=== PATIENT | female | born 1975 | race Caucasian/White ===

== ENCOUNTER 2019-03-26 00:54 | Day surgery (SDC) | payer OTHER, SELFPAY ==
[2019-03-13 10:37] VITALS: BMI 27.4
[2019-03-26] VITALS (14 sets, daily range): BP systolic 100–129; BP diastolic 66–84; PULSE 54–75; RESP 14–18; TEMP 36.2–37.4; O2SAT 97–100
[2019-03-26] MEDS: LACTATED RINGERS 1,000 ML 30 ML IV CONT ×2 (10:50→13:57)
--- NOTE | 2019-03-26 11:26 | WPDANESEPPF ---
Anes - Initial Pre Proc Eval Procedure: Operation Date: 03/26/19 12:00 Proposed Procedures p Total Laparoscopic Hysterectomy With Bilateral Salpingo-Oophorectomy - Caroline Vazquez MD Date/Time: 03/26/19 11:26 Surgeon: Caroline Vazuqez MD Pre Op Diagnosis: Pelvic Pain/ Bilateral Ovarian Cyst/Menometrorrhia Patient Data Age: 43 Gender: F Height: 5 ft 4 in Weight: 75.8 kg Allergies Allergy/AdvReac Type Severity Reaction Status Date / Time Sulfa (Sulfonamide Allergy Unknown RASH Verified 03/26/19 10:53 Antibiotics) Home Medications Medication Instructions Recorded Confirmed Type tamoxifen 20 mg PO DAILY 03/13/19 03/26/19 History Patient hx anesthesia problems: none and post op nausea/vomiting Family hx anesthesia problems: none PMFSH Past Medical History Medical History Anemia Surgical History Surgical History (Updated 03/26/19 @ 11:26 by Ck Garcia MD) H/O subtotal mastectomy of right breast Anes - Eval Final PreProcedure Day of Procedure 03/26/19 11:26 Patient weight: normal Heart: regular rate and rhythm Lungs: clear to auscultation Airway: Mallampati scale class II Neurological: alert and oriented Last oral intake: >/= 8 hours ASA classification: III Emergent: no Anesthetic plan: proceed Anesthesia type and monitoring: general ETT and standard monitoring Informed Consent: The patient's anesthetic plan and its attendant risks and benefits were discussed with the patient/family/POA. Questions were solicited and answers provided to the satisfaction of the patient/family/POA.
[2019-03-26] MEDS: SCOPOLAMINE 1.5 MG PATCH TRANSDERM (11:39)
[2019-03-26] MEDS: ONDANSETRON INJ 4 MG/2 ML VIAL IV PUSH (11:39)
--- NOTE | 2019-03-26 12:01 | WPDHPUPDATE1 ---
History and Physical Update Update Date/Time: 03/26/19 12:01 History and Physical has been reviewed, including an updated exam of the patient. There are NO changes in the patient's condition. Risks, benefits, and alternatives have been discussed and questions answered. Patient agrees to proceed with procedure.
--- NOTE | 2019-03-26 12:14 | PM.OP ---
Procedure Note - Brief Procedure Note - Brief Date of procedure: 03/26/19 Pre-op diagnosis: Pelvic Pain/ Bilateral Ovarian Cyst/Menometrorrhia Post-op diagnosis: same Procedure performed: TLH/BSO Anesthesia: GETA Surgeon: Caroline Vazquez MD Estimated blood loss (mL): 25 Drains: Yes (Jenkins) Pathology: yes Complications: No immediate complications Condition: stable Disposition: PACU Findings: Normal uterus, fallopian tubes, right ovary; left ovarian cyst
[2019-03-26] MEDS: ceFAZolin 2 GM/D5W 50 ML 2 GM/50 ML BAG IVPB (12:21)
[2019-03-26] MEDS: BUPIVACAINE/EPINEPHRINE 0.5% 30 ML VIAL INFILTRATE (12:58)
[2019-03-26] MEDS: DEXTROSE 5%/LACTATED RINGERS 1,000 ML 125 ML IV CONT (15:45)
[2019-03-26] MEDS: IBUPROFEN 600 MG TABLET PO ×2 (15:48→22:18)
--- NOTE | 2019-03-26 17:13 | OP_ITS ---
DATE OF PROCEDURE: 03/26/2019 PREOPERATIVE DIAGNOSES: Menometrorrhagia, left ovarian cyst. POSTOPERATIVE DIAGNOSES: Menometrorrhagia, left ovarian cyst. PROCEDURE PERFORMED: Total laparoscopic hysterectomy, bilateral salpingo-oophorectomy. ANESTHESIA: General endotracheal tube. ESTIMATED BLOOD LOSS: 25 mL. COMPLICATIONS: None. FINDINGS: Normal uterus, fallopian tubes, right ovary, appendix, liver and gallbladder, small nodular-appearing left ovarian cyst. INDICATIONS: A 43-year-old who had breast cancer and is on tamoxifen, had been recommended by her oncologist to consider removing her ovaries to decrease estrogen levels and she also has a persistent left ovarian cyst and irregular menstrual bleeding, so she opted for total laparoscopic hysterectomy and bilateral salpingo-oophorectomy after the risks, benefits, complications, and alternatives were discussed. DESCRIPTION OF PROCEDURE: For the procedure, she was taken to the operating room where general anesthesia was obtained. She was prepared and draped in the normal sterile fashion in the dorsal lithotomy position. Marcaine was injected infraumbilically and a 5 mm skin incision was made in the infraumbilical fold with a scalpel. A 5 mm non-bladed trocar was then placed with the camera in the trocar under direct visualization into the peritoneal cavity. Insufflation was begun and she was placed in Trendelenburg. A 5 mm trocar was placed in the left lower quadrant under direct visualization and a 10 mm trocar in the right lower quadrant. Inspection of the pelvis revealed the findings as noted above. There were a few adhesions of the colon to the left pelvic sidewall which were taken down easily with a harmonic Scalpel. At this point, the right infundibulopelvic ligament was grasped, coagulated, and transected with the Harmonic Scalpel. The mesosalpinx serially clamped and transected and then the round ligament was clamped and transected. The bladder flap was then created from the right side. The left infundibulopelvic ligament was then grasped, coagulated, and transected. The mesosalpinx was serially transected and then the round ligament on the left side and the bladder flap was created from the left creating the flap from the right. The bladder was pushed down further with a laparoscopic Kittner. The left uterine artery was then skeletonized. The right uterine artery was skeletonized, clamped, coagulated, and transected with excellent hemostasis visualized. Several more bites were taken down the broad ligament including the uterosacral ligament. The left uterine artery was then clamped, coagulated, and transected with excellent hemostasis visualized. Several more bites were taken down the broad ligament until the level of the uterosacral ligament had been reached and the uterosacral ligament was also divided. A sponge stick was placed in the vagina and pressed against the anterior cul-de-sac. An incision was made against the sponge stick with the Harmonic Scalpel, making a colpotomy incision on the anterior side of the cervix. Then the vagina was circumferentially incised hugging the cervix until the cervix and uterus were completely free from the surrounding vaginal tissue. The cervix was pressed down as much as possible into the vaginal canal. Attention was then turned to the vagina where a speculum was placed. The cervix was grasped with a tenaculum and the uterus was brought easily through the vagina. A moist blue towel was then placed in the vagina to dietitian helper in holding in pneumoperitoneum. Attention was then turned back to the abdomen. The pelvis was irrigated. All operative sites were found to be hemostatic. The vaginal cuff was then reapproximated using 0 Vicryl interrupted sutures. A total of 3 sutures were placed laparoscopic
[2019-03-26] MEDS: ENOXAPARIN 40 MG/0.4 ML SYRINGE SUB-Q (19:01)
[2019-03-27 05:00] VITALS: BP 97/58; PULSE 65; RESP 16; TEMP 37.5; O2SAT 97
[2019-03-27] MEDS: IBUPROFEN 600 MG TABLET PO (05:14)
[2019-03-27 06:16] LABS: Blood Urea Nitrogen 9 mg/dL (7-17); Calcium 8.6 mg/dL (8.4-10.2); Carbon Dioxide 26 mmol/L (22-30); Chloride 105 mmol/L (98-107); Estimated CRCL calculation 64 ml/min; Estimated Glomerular Filt Rate > 60; Glucose 107 mg/dL (65-105); Potassium 3.8 mmol/L (3.4-5.0); Sodium 138 mmol/L (137-145)
[2019-03-27 06:20] LABS: Basophils Percent Auto 0.2 % (0.2-1.2); Hematocrit 30.5 % (37.0-47.0); Hemoglobin 9.2 g/dL (12.0-15.0); Immature Granulocyte Absolute 0.03 K/mm3 (0.00-0.031); Immature Granulocyte Percent A 0.3 % (0-0.5); Lymphocytes Absolute Auto 2.11 K/mm3 (0.9-3.2); Mean Corpuscular HGB Conc 30.2 g/dl (32-36); Mean Corpuscular Hemoglobin 25.3 pg (26-34); Mean Corpuscular Volume 83.8 fl (80-100); Monocytes Absolute Auto 0.7 K/mm3 (0.1-0.6); Monocytes Percent Auto 7.5 % (2.6-8.5); Neutrophils Absolute Auto 6.7 K/mm3 (1.3-6.7); Platelet Count Result 230 k/mm3 (150-375); Red Blood Count 3.64 M/mm3 (4.2-5.4); Red Cell Distribution Width 15.4 % (11.5-14.5); White Blood Count 9.6 K/mm3 (4.5-10.0)
[2019-03-27 07:00] VITALS: BP 108/58; PULSE 65; RESP 18; TEMP 37.4
--- NOTE | 2019-03-27 08:00 | WPDANESPN ---
Anes - Prog Note Post-Op Date/Time: 03/27/19 08:00 Cardiovascular status: normal Respiratory status: normal Airway patency: baseline Mental status: baseline Post-Op hydration status: normal Vital Signs: Last Vital Signs Temp 99.4 F 03/27/19 07:00 Pulse 65 03/27/19 07:00 Resp 18 03/27/19 07:00 BP 108/58 L 03/27/19 07:00 Pulse Ox 97 03/27/19 05:00 I/O: Intake & Output 03/26/19 03/27/19 03/27/19 23:59 07:59 15:59 Intake Total 240 Output Total 1625 450 Balance -1385 -450 Laboratory Tests 03/27/19 05:02 03/27/19 05:02 03/27/19 03/27/19 05:02 05:02 WBC 9.6 RBC 3.64 L Hgb 9.2 L Hct 30.5 L MCV 83.8 MCH 25.3 L MCHC 30.2 L RDW 15.4 H Plt Count 230 MPV 10.0 Immature Gran % (Auto) 0.3 Neut % (Auto) 70.0 Lymph % (Auto) 22.0 [place] % (Auto) 7.5 Eos % (Auto) 0.0 Baso % (Auto) 0.2 Lymph # (Auto) 2.11 [place] # (Auto) 0.7 H Eos # (Auto) 0.0 Baso # (Auto) 0.0 Abs Immat Gran (auto) 0.03 Absolute Neuts (auto) 6.7 Absolute Nucleated RBC 0.0 Nucleated RBC % 0.0 Sodium 138 Potassium 3.8 Chloride 105 Carbon Dioxide 26 BUN 9 Creatinine 1.00 Estim Creat Clear Calc 64 Estimated GFR > 60 Glucose 107 H Calcium 8.6 Post-procedural complaints: none Patient Feedback: Patient satisfied with anesthetic care.
--- NOTE | 2019-03-27 08:02 | PM.GYNPNOP ---
PSYCHIATRIC LPN - A/P Assessment and plan (1) Left ovarian cyst: Code(s): N83.202 - Unspecified ovarian cyst, left side Status: Acute Assessment and Plan: Doing well s/p TLH/BSO. Discharge home today. Follow up in 1 week Postoperative Procedures: Procedures Operation Date: 03/26/19 12:00 Actual Procedures Side Surgeon p Total Laparoscopic Hysterectomy With Bilateral Salpingo-Oophorectomy Bilateral Caroline Vazquez MD Time Spent With Patient Time: Total time spent is greater than 50% in coordination of care (as documented) at patient's floor/unit and/or counseling patient: Time with patient: less than 15 minutes PSYCHIATRIC LPN- PN:Subj Post-Op Subjective Date/time seen: 03/27/19 08:02 Subjective: patient has no complaints, patient desires discharge, pain is well controlled and patient is tolerating oral intake Review of Systems Review of Systems: All systems reviewed & are unremarkable except as noted in HPI and below Exam Const: General: comfortable, no acute distress, alert and awake Resp: Auscultation: clear to auscultation bilaterally Cardio: Rate: regular rate Rhythm: regular rhythm GI: Inspection: non-distended Auscultation: normal bowel sounds Other: soft, appropriately tender, incisions without E/D/I Extrem: General: no calf tenderness bilaterally Psych: Mental Status: mental status grossly normal PSYCHIATRIC LPN - PN: Obj Data Vital Signs Vital Signs: Vital Signs - 24 hr 03/26/19 10:26 03/26/19 13:57 03/26/19 14:12 Temperature 37.0 C 36.2 C L Pulse Rate 75 72 56 L Respiratory Rate 18 18 14 Blood Pressure 122/81 117/74 114/68 Pulse Oximetry 100 100 100 03/26/19 14:26 03/26/19 14:40 03/26/19 14:55 Temperature Pulse Rate 54 L 63 55 L Respiratory Rate 16 17 17 Blood Pressure 117/77 118/78 122/83 Pulse Oximetry 98 100 99 03/26/19 15:10 03/26/19 15:15 03/26/19 15:30 Temperature 36.7 C Pulse Rate 61 60 58 L Respiratory Rate 18 16 16 Blood Pressure 118/78 129/82 123/83 Pulse Oximetry 97 99 100 03/26/19 16:00 03/26/19 16:30 03/26/19 17:00 Temperature Pulse Rate 63 64 74 Respiratory Rate 16 16 16 Blood Pressure 128/84 124/80 117/81 Pulse Oximetry 98 98 99 03/26/19 19:00 03/26/19 22:30 03/27/19 05:00 Temperature 37.4 C 37.2 C 37.5 C Pulse Rate 62 67 65 Respiratory Rate 16 16 16 Blood Pressure 118/80 100/66 97/58 L Pulse Oximetry 100 100 97 03/27/19 07:00 Temperature 37.4 C Pulse Rate 65 Respiratory Rate 18 Blood Pressure 108/58 L Pulse Oximetry Intake/Output Intake/Output: Intake & Output 03/24/19 03/25/19 03/26/19 03/27/19 23:59 23:59 23:59 23:59 Intake Total 640 Output Total 1685 450 Balance -1045 -450 Meds/Results Medications: Active Medications Generic Name Dose Route Start Last Admin Trade Name Freq PRN Reason Stop Dose Admin Hydrocodone Bitart/Acetaminophen 1 tab 03/26/19 15:04 03/26/19 15:49 Itmann 5-325 Mg PO 1 tab Q3H PRN Administration Pain Rated 5 or Less Hydrocodone Bitart/Acetaminophen 1 tab 03/26/19 15:04 Itmann 10-325 Mg PO Q3H PRN Pain Rated 6 or Greater Docusate Sodium 100 mg 03/26/19 17:00 Colace Capsule PO BID NAS Enoxaparin Sodium 40 mg 03/26/19 18:00 03/26/19 19:01 Lovenox SUB-Q 40 mg DAILY NAS Administration Dextrose/Lactated Ringer's 1,000 mls @ 125 mls/hr 03/26/19 15:04 03/26/19 15:45 Dextrose 5%/Lactated Ringers IV CONT 125 mls/hr .Q8H NAS Administration Ibuprofen 600 mg 03/26/19 15:04 03/27/19 05:14 Motrin PO 600 mg Q6H PRN Administration Cramping Metoclopramide HCl 10 mg 03/26/19 15:04 Reglan IV PUSH Q6H PRN Nausea Naloxone HCl 0.1 mg 03/26/19 15:04 Narcan IV PUSH Q2M PRN Respiratory rate less than 10 Ondansetron HCl 4 mg 03/26/19 15:04 Zofran Inj IV PUSH Q6H PRN Nausea Simethicone 80 mg 03/26/19 15:04 Mylicon PO Q2H PRN Gas Tamoxifen Citrate 20 mg
--- NOTE | 2019-03-27 08:17 | PM.DS ---
DS: Diagnosis Admitting Diagnosis Admitting Diagnosis: Pelvic and perineal pain Discharge Diagnosis (1) Left ovarian cyst: Code(s): N83.202 - Unspecified ovarian cyst, left side Status: Acute DS: Summary Hospital Course Reason for hospitalization: planned hysterectomy Status at Discharge Functional status at discharge: independent ambulation Overall status at discharge: patient is progressing back to baseline Time Spent with Patient Time attestation: Total time spent providing and/or coordinating discharge services: Time spent: Less than 30 minutes DS: Data Data Completed and Pending Pending studies at discharge: Pending at discharge 03/26/19 13:27 Surgical [PTH] Routine Labs on day of discharge: Labs from last 24 hours 03/27/19 03/27/19 05:02 05:02 WBC 9.6 RBC 3.64 L Hgb 9.2 L Hct 30.5 L MCV 83.8 MCH 25.3 L MCHC 30.2 L RDW 15.4 H Plt Count 230 MPV 10.0 Immature Gran % (Auto) 0.3 Neut % (Auto) 70.0 Lymph % (Auto) 22.0 [place] % (Auto) 7.5 Eos % (Auto) 0.0 Baso % (Auto) 0.2 Lymph # (Auto) 2.11 [place] # (Auto) 0.7 H Eos # (Auto) 0.0 Baso # (Auto) 0.0 Abs Immat Gran (auto) 0.03 Absolute Neuts (auto) 6.7 Absolute Nucleated RBC 0.0 Nucleated RBC % 0.0 Sodium 138 Potassium 3.8 Chloride 105 Carbon Dioxide 26 BUN 9 Creatinine 1.00 Estim Creat Clear Calc 64 Estimated GFR > 60 Glucose 107 H Calcium 8.6 Discharge Plan Discharge Attending physician on discharge: Caroline Vazquez Discharging Clinician: Caroline Vazquez Patient Disposition: Home, Self-Care Activity: may shower and pelvic rest Diet: regular Wound Care Instructions: incision open to air Discharge Instructions: Remove the Scopolamine patch that was placed behind your ear in 72 hours or less. Wash your hands after touching. Follow-up/Referrals: Caroline Vazquez MD [Physician] - 1 Week Discharge Medications: New hydrocodone-acetaminophen 5-325 mg Tablet 1 tab PO Q3H PRN (Reason: Pain Rated 5 Or Less) Qty: 30 RF: 0 ibuprofen 600 mg Tablet 600 mg PO Q6H PRN (Reason: Cramping) Qty: 60 RF: 0 Continued tamoxifen 20 mg tablet 20 mg PO DAILY RF: 0 Date of admission: 03/26/19 15:04 Primary Care Provider: GregorioJairo Admitting Provider: Caroline Vazquez Attending physician on admission: Caroline Vazquez
[2019-03-27] MEDS: DOCUSATE SODIUM 100 MG CAPSULE PO (09:25)
[2019-03-27] MEDS: ENOXAPARIN 40 MG/0.4 ML SYRINGE SUB-Q (11:21)
--- NOTE | 2019-03-27 11:21 | PC.NURSE ---
At 1118: pt asked for Lovenox SQ injection to be given in her rt. arm.
== END 2019-03-27 11:30 | disposition home or self-care (01) ==
LOC: ANHSURGERY 11:47 → ANHOB2 03-27 08:18
PROVIDERS: PCP Internal Medicine; Visit Provider Obstetrics & Gynecology
PROC: 0UT9FZZ Resection of Uterus, Via Natural or Artificial Opening With Percutaneous Endoscopic Assistance (ICD-10-PCS; CPT 58552; principal; 2019-03-26 12:00)
DX: N92.1 Excessive and frequent menstruation with irregular cycle (principal); D25.1 Intramural leiomyoma of uterus; N83.8 Other noninflammatory disorders of ovary, fallopian tube and broad ligament; N83.292 Other ovarian cyst, left side; R10.2 Pelvic and perineal pain; D64.9 Anemia, unspecified
CPT/HCPCS: 58552; 36415; 80048; 85025; 88307; 99199; A9270; J0131; J0690; J1100; J1170; J1650; J2250; J2405; J2704; J2710; J3010; J7030; J7120; J7121

== ENCOUNTER 2020-08-01 18:14 | Emergency (ER) | payer OTHER, SELFPAY ==
--- NOTE | 2020-08-01 18:17 | ED.URI ---
HPI - URI/Sore Throat General Chief Complaint: Upper Respiratory Infection Stated Complaint: Sore Throat Time Seen by Provider: 08/01/20 18:17 Source: patient and RN notes reviewed History of Present Illness HPI Narrative: Patient is a 44-year-old female who presents the urgent care with complaints of a sore throat and nausea. Patient states that started around this time last night and she has been taking Advil and using cough drops. Denies of any fever, vomiting or abdominal pain. Patient denies of any known exposure to strep or Covid. No other acute complaints. No acute distress noted. Patient aware of the plan of care. Some parts of this dictation were generated by voice recognition software and may contain typographical and/or grammatical inaccuracies. Related Data Allergies Allergy/AdvReac Type Severity Reaction Status Date / Time Sulfa (Sulfonamide Allergy Unknown RASH Verified 08/01/20 18:25 Antibiotics) Review of Systems Review of Systems: Narrative: CONSTITUTIONAL: Denies fever, chills, or sweats. EYES: Denies visual changes, redness, or discharge. ENT: Reports of sore throat and mild otalgia CARDIOVASCULAR: Denies chest pain, palpitations, or edema. RESPIRATORY: Denies cough or dyspnea. GASTROINTESTINAL: Reports of nausea without vomiting, diarrhea or abdominal pain GENITOURINARY: Denies dysuria or hematuria. SKIN: Denies rash or itching. MUSCULOSKELETAL: Denies back pain, joint pain, or myalgia. NEUROLOGIC: Denies headache, numbness, or weakness. All other systems reviewed are negative, except as documented in HPI. PMFSH Past Medical History Medical History Anemia History of breast cancer Surgical History Surgical History H/O subtotal mastectomy of right breast Social History Social History Smoking status: Never smoker Alcohol intake: never Comments At the time of my signature, I reviewed and agree with the nursing past medical, surgical, social, and family history. There is no relevant family history pertinent to the patient complaint. Exam Narrative: Exam Narrative: GENERAL: This is a well-nourished, well-developed patient, in no apparent distress. HEAD: normocephalic, atraumatic. EYES: PERRL. Sclera clear/white. Vision is grossly intact. EARS: External ears normal, auditory canals clear and without drainage, TMs normal without perforation. Hearing grossly intact. NOSE: External nose normal with no obvious nasal discharge, nares without redness, no rhinorrhea. THROAT: Mucous membranes moist, moderate erythema noted posterior oropharynx without exudate or ulceration. Mild postnasal drainage NECK: Neck supple, mild right tender submandibular lymphadenopathy CARDIOVASCULAR: Regular rate and rhythm without murmurs, gallops, or rubs. RESPIRATORY: Clear to auscultation. Breath sounds equal bilaterally. No wheezes, rales, or rhonchi. GASTROINTESTINAL: Abdomen soft, non-tender, nondistended. SKIN: warm, intact with no suspicious lesions or rash, good texture and turgor. NEURO: awake, alert, and oriented to person, place and time. There were no obvious focal neurologic abnormalities. EXTREMITIES: No clubbing, cyanosis, or edema. Course Vital Signs Vital signs: Vital Signs Temperature 98.9 F 08/01/20 18:20 Pulse Rate 110 H 08/01/20 18:20 Respiratory Rate 18 08/01/20 18:20 Blood Pressure 121/84 08/01/20 18:20 Pulse Oximetry 98 08/01/20 18:20 Temperature 98.9 F 08/01/20 18:20 Pulse Rate 110 H 08/01/20 18:20 Respiratory Rate 18 08/01/20 18:20 Blood Pressure 121/84 08/01/20 18:20 Pulse Oximetry 98 08/01/20 18:20 Reviewed MDM - URI/Sore Throat MDM Narrative Medical decision making narrative: Reviewed lab results with the patient. She is aware that strep swab was negative. Educated patien
[2020-08-01 18:20] VITALS: BP 121/84; PULSE 110; RESP 18; TEMP 37.2; O2SAT 98
== END 2020-08-01 18:42 | disposition home or self-care (01) ==
PROVIDERS: Emergency Provider Nurse Practitioner Family; PCP Internal Medicine
DX: J02.9 Acute pharyngitis, unspecified (principal); Z85.3 Personal history of malignant neoplasm of breast; Z90.13 Acquired absence of bilateral breasts and nipples
CPT/HCPCS: 87081; 87880; 99213; G0463